=== PATIENT | female | born 2005 | race Two or more races ===

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

== ENCOUNTER 2024-07-21 20:35 | Emergency (ER) | payer MEDICAID ==
[~2024-07-21] VITALS: Ht 167.6 cm; Wt 131.0 kg
[2024-07-21 20:39] VITALS: BP 130/66; PULSE 81; RESP 18; TEMP 98.4; O2SAT 96
[2024-07-21] MEDS ORDERED: BUPR-94 PO (20:51)
[2024-07-21] MEDS: BUPROPION HCL 150MG XL 24 HR 150 MG TAB PO ONE (20:51)
== END 2024-07-21 20:56 | disposition home or self-care (01) ==
LOC: ER 20:35
DX: F41.9 Anxiety disorder, unspecified (principal); F30.9 Manic episode, unspecified; Z86.59 Personal history of other mental and behavioral disorders; J45.909 Unspecified asthma, uncomplicated; F12.90 Cannabis use, unspecified, uncomplicated; Z88.0 Allergy status to penicillin; Z88.1 Allergy status to other antibiotic agents; Z79.899 Other long term (current) drug therapy; Z79.84 Long term (current) use of oral hypoglycemic drugs
CPT/HCPCS: 99283

== ENCOUNTER 2024-08-08 22:33 | Emergency (ER) | payer OTHER, MEDICAID ==
[~2024-08-08] VITALS: Ht 167.6 cm; Wt 128.6 kg
[~2024-08-08 22:33] MED LIST changes: +BUPR-94 PO
[2024-08-09 00:48] LABS: URINE HCG NEGATIVE (NEG)
[2024-08-09 01:20] LABS: URINE AMPHETAMINE SCREEN NEGATIVE (Neg); URINE BARBITUATE SCREEN NEGATIVE (Neg); URINE BENZODIAZEPINES SCREEN NEGATIVE (Neg); URINE CANNABINOID SCREEN POSITIVE (Neg); URINE COCAINE SCREEN NEGATIVE (Neg); URINE METHADONE SCREEN NEGATIVE (Neg); URINE OPIATE SCREEN NEGATIVE (Neg); URINE PHENCYCLIDINE SCREEN NEGATIVE (Neg)
[2024-08-09] MEDS: LEVONORGESTREL 1.5MG tablet 1.5 MG TABLET PO ONE (02:26)
[2024-08-09] MEDS: TINIDAZOLE 500 MG TABLET PO ONE (02:26)
[2024-08-09] MEDS: azithromycin 250mg tablet PO ONE (02:27)
[2024-08-09] MEDS: CefTRIAXone 500MG IM Kit w/LIDOcaine (for pt below or = to 150kg) IM ONE (02:27)
[2024-08-09 03:27] VITALS: BP 128/76; PULSE 66; RESP 16; TEMP 97.9; O2SAT 99
== END 2024-08-09 03:00 | disposition home or self-care (01) ==
LOC: EEVIPCON 22:34 → ER 22:34
DX: T76.21XA Adult sexual abuse, suspected, initial encounter (principal); J45.909 Unspecified asthma, uncomplicated; F32.A Depression, unspecified; F12.90 Cannabis use, unspecified, uncomplicated; Z88.0 Allergy status to penicillin; Z88.1 Allergy status to other antibiotic agents; Z79.899 Other long term (current) drug therapy
CPT/HCPCS: 80305; 81025; 96372; 99284; J0696

== ENCOUNTER 2024-09-27 19:39 | Emergency (ER) | payer MEDICAID, OTHER ==
[~2024-09-27] VITALS: Ht 167.6 cm; Wt 126.8 kg
[2024-09-27 20:22] LABS: BILIRUBIN,URINE NEGATIVE (Neg); CLARITY,URINE CLOUDY (Clear); COLOR,URINE YELLOW (Yellow); GLUCOSE, URINE NEGATIVE (Neg); KETONES,URINE NEGATIVE (Neg); LEUKOCYTE ESTERASE ,URINE NEGATIVE (Neg); NITRITES, URINE NEGATIVE (Neg); OCCULT BLOOD,URINE NEGATIVE (Neg); PROTEIN,URINE NEGATIVE (Neg); UROBILINOGEN,URINE 0.2 E.U/dL (0.2-1.0)
[2024-09-27 20:28] LABS: UA COLLECTION TYPE VOIDED
[2024-09-27 20:29] LABS: BACTERIA,URINE 2+ /HPF (Neg); MUCUS STRANDS FEW /LPF (Neg); RBC,URINE 0-2 /HPF (0-2); SQUAMOUS EPITHELIAL CELL,UR MANY /LPF (FEW); WBC,URINE 0-4 /HPF (0-4)
[2024-09-27 20:30] LABS: RENAL CELLS, URINE MODERATE /HPF; TRANSITIONAL EPI CELLS,URINE FEW /HPF
[2024-09-27 20:35] LABS: BASOPHILS # (AUTO) 0.1 X10'3 (0-0.2); BASOPHILS % (AUTO) 0.5 % (0-1); EOSINOPHILS # (AUTO) 0.1 X10'3 (0-0.9); EOSINOPHILS % (AUTO) 0.6 % (0-6); HEMATOCRIT 37.2 % (35.0-45.0); HEMOGLOBIN 12.1 g/dl (12.0-16.0); LYMPHOCYTES # (AUTO) 3.8 X10'3 (1.1-4.8); LYMPHOCYTES % (AUTO) 28.4 % (21-51); MEAN CORPUSCULAR HGB CONC 32.4 g/dL (33.0-36.5); MEAN CORPUSCULAR VOLUME 83.5 FL (78-98); MEAN PLATELET VOLUME 7.5 FL (7.4-10.4); MONOCYTES # (AUTO) 0.6 X10'3 (0-0.9); MONOCYTES % (AUTO) 4.8 % (2-12); NEUTROPHILS # (AUTO) 8.8 X10'3 (1.8-7.7); NEUTROPHILS % (AUTO) 65.7 % (42-75); PLATELET COUNT 330 X10'3 (140-440); RED BLOOD COUNT 4.46 X10'6 (4.20-5.60); RED CELL DISTRIBUTION WIDTH 15.2 % (11.5-14.5); WHITE BLOOD COUNT 13.4 X10'3 (4.5-11.0)
[2024-09-27] MEDS ORDERED: BUPR-561 PO (20:39)
[2024-09-27 20:45] LABS: URINE AMPHETAMINE SCREEN NEGATIVE (Neg); URINE BARBITUATE SCREEN NEGATIVE (Neg); URINE BENZODIAZEPINES SCREEN NEGATIVE (Neg); URINE CANNABINOID SCREEN POSITIVE (Neg); URINE COCAINE SCREEN NEGATIVE (Neg); URINE METHADONE SCREEN NEGATIVE (Neg); URINE OPIATE SCREEN NEGATIVE (Neg); URINE PHENCYCLIDINE SCREEN NEGATIVE (Neg)
[2024-09-27 20:46] LABS: HCG SERUM QL NEGATIVE
[2024-09-27 20:57] LABS: ALANINE AMINOTRANSFERASE 28 U/L (12-78); ALBUMIN 3.6 G/DL (3.4-5.0); ALKALINE PHOSPHATASE 80 IU/L (20-180); ANION GAP 8 (8-16); ASPARTATE AMINO TRANSFERASE 20 U/L (10-37); BILIRUBIN,TOTAL 0.3 MG/DL (0.1-1.0); BLOOD UREA NITROGEN 7 MG/DL (7-18); BUN/CREATININE RATIO 8.4 (10.0-20.0); CALCIUM 9.1 MG/DL (8.5-10.1); CHLORIDE 106 MMOL/L (99-107); CREATININE 0.83 MG/DL (0.40-0.90); ETHANOL < 10 MG/DL (<10); GLUCOSE 92 MG/DL (70-104); POTASSIUM 4.1 MMOL/L (3.5-5.1); PRO BRAIN NATRIURETIC PEPTIDE 108 PG/ML (0-125); SALICYLATE 1.2 MG/DL (4.0-20.0); SODIUM 141 MMOL/L (135-145); TOTAL CARBON DIOXIDE 27.3 MMOL/L (24-32); TOTAL PROTEIN 7.3 G/DL (6.4-8.2); eCRCL 101 ML/MIN; eGFR 88 ML/MIN
[2024-09-27 21:00] LABS: ACETAMINOPHEN < 2.0 UG/ML (10-30)
[2024-09-27] MEDS: diphenhydrAMINE 25mg capsule PO STA (21:21)
[2024-09-27] MEDS: LORazepam 1 MG tablet PO STA (21:21)
[2024-09-27] MEDS: haloperidol 5mg tablet PO STA (21:22)
[2024-09-27] MEDS: diphenhydrAMINE 50 mg/ml inj ONE (21:22)
[2024-09-27] MEDS: haloperidol lactate 5mg/ml inj ONE (21:22)
[2024-09-27] MEDS: LORazepam 2 mg/ml vial ONE (21:22)
[2024-09-28] MEDS: LORazepam 2 mg/ml vial IM ONE (12:26)
[2024-09-28] MEDS: ondansetron 4mg rapidly disintigrating tab PO ONE (12:26)
[2024-09-28] MEDS: azithromycin 250mg tablet PO ONE (16:16)
[2024-09-28] MEDS: TINIDAZOLE 500 MG TABLET PO ONE (16:16)
[2024-09-28] MEDS: CefTRIAXone 500MG IM Kit w/LIDOcaine (for pt below or = to 150kg) IM ONE (16:16)
[2024-09-28 17:24] VITALS: BP 98/60; PULSE 94; RESP 16; TEMP 98; O2SAT 96
== END 2024-09-28 17:15 | disposition home or self-care (01) ==
LOC: ER 19:39
DX: R45.851 Suicidal ideations (principal); J45.909 Unspecified asthma, uncomplicated; F32.A Depression, unspecified; F12.90 Cannabis use, unspecified, uncomplicated; Z88.0 Allergy status to penicillin; Z88.1 Allergy status to other antibiotic agents; Z79.899 Other long term (current) drug therapy; Z20.822 Contact with and (suspected) exposure to COVID-19
CPT/HCPCS: 36415; 80053; 80305; 80320; 80329; 81001; 83880; 84703; 85025; 87811; 96372; 99284; J0696; J1200; J1630; J2060